=== PATIENT | female | born 1940 | race Caucasian/White ===

== ENCOUNTER → 2018-05-16 09:51 | Outpatient (REF) | payer OTHER, SELFPAY ==
[2018-05-16 18:44] LABS: Anion Gap 9.8 mmol/L (3-11); BUN 16 mg/dL (7-18); CO2 27.2 mmol/L (21.0-32.0); CREATININE 1.01 mg/dL (0.55-1.02); Calcium 8.7 mg/dL (8.5-10.1); Chloride 105 mmol/L (98-107); Estimated GFR 53.15 (mL/min/1.73m2); Glucose 90 mg/dL (70-100); Potassium 4.5 mmol/L (3.5-5.1); Sodium 142 mmol/L (136-145)
== END ==
LOC: NCHCN 09:51
PROVIDERS: PCP Internal Medicine; Visit Provider Nurse Practitioner Family
DX: N18.9 Chronic kidney disease, unspecified (principal)
CPT/HCPCS: 80048

== ENCOUNTER 2019-07-25 02:13 | Outpatient (RCR) | payer OTHER, SELFPAY ==
[2019-07-25] MEDS: Normal Saline Flush 10 ML SYR IVP (07:50)
[2019-07-25 08:08] LABS: Absolute Basophil Count 0.04 k/cumm (0.0-0.2); Absolute Lymphocyte Count 1.48 k/cumm (1.2-3.4); Absolute Monocyte Count 0.52 k/cumm (0.11-0.7); Absolute Neutrophil Count 2.95 k/cumm (1.2-6.7); Basophils % 0.8; Eosinophils % 3.9; HCT 35.3 % (36.0-46.0); HGB 11.4 g/dL (12.0-15.5); Lymphocytes % 28.5; Mean Corp. HGB Concentration 32.3 g/dL (32.0-36.0); Mean Corpuscular Hemoglobin 30.2 pg (27.0-33.0); Mean Corpuscular Volume 93.4 fL (80-95); Mean Platelet Volume 9.2 fL (8.0-11.0); Neutrophils % 56.8; Platelet Count 264 x1000/uL (130-400); RBC 3.78 m/cumm (4.00-5.20); RBC Distribution Width 13.9 % (11.7-14.6); White Blood Cell Count 5.19 k/cumm (4.4-10.8)
[2019-07-25 08:20] LABS: ALT 26 U/L (14-59); AST 16 U/L (15-37); Albumin 3.2 g/dL (3.4-5.0); Alkaline Phosphatase 58 U/L (46-116); Anion Gap 7.6 mmol/L (3-11); BUN 20 mg/dL (7-18); Bilirubin, Total 0.3 mg/dL (0.2-1.0); CO2 27.4 mmol/L (21.0-32.0); CREATININE 0.93 mg/dL (0.55-1.02); Calcium 8.4 mg/dL (8.5-10.1); Chloride 108 mmol/L (98-107); Estimated GFR 58.31 (mL/min/1.73m2); Glucose 77 mg/dL (70-100); Potassium 3.9 mmol/L (3.5-5.1); Sodium 143 mmol/L (136-145)
== END 2019-08-14 23:59 | disposition home or self-care (01) ==
LOC: INF 02:13
PROVIDERS: PCP Internal Medicine; Visit Provider Internal Medicine Hematology & Oncology
DX: C18.7 Malignant neoplasm of sigmoid colon (principal); Z45.2 Encounter for adjustment and management of vascular access device
CPT/HCPCS: 36591; 80053; 85025

== ENCOUNTER 2019-08-29 02:24 | Outpatient (RCR) | payer OTHER, SELFPAY ==
[2019-08-15] MEDS: Normal Saline Flush 10 ML SYR IVP (09:56)
[2019-08-15 10:24] LABS: Absolute Basophil Count 0.02 k/cumm (0.0-0.2); Absolute Eosinophil Count 0.09 k/cumm (0.0-0.7); Absolute Lymphocyte Count 1.28 k/cumm (1.2-3.4); Absolute Monocyte Count 0.48 k/cumm (0.11-0.7); Absolute Neutrophil Count 0.97 k/cumm (1.2-6.7); Basophils % 0.7; Eosinophils % 3.2; HCT 35.4 % (36.0-46.0); HGB 11.6 g/dL (12.0-15.5); Lymphocytes % 45.1; Mean Corp. HGB Concentration 32.8 g/dL (32.0-36.0); Mean Corpuscular Hemoglobin 30.8 pg (27.0-33.0); Mean Corpuscular Volume 93.9 fL (80-95); Mean Platelet Volume 9.1 fL (8.0-11.0); Monocytes % 16.9; Neutrophils % 34.1; Platelet Count 234 x1000/uL (130-400); RBC 3.77 m/cumm (4.00-5.20); RBC Distribution Width 14.5 % (11.7-14.6); White Blood Cell Count 2.84 k/cumm (4.4-10.8)
[2019-08-15 10:30] LABS: ALT 37 U/L (14-59); AST 27 U/L (15-37); Albumin 3.5 g/dL (3.4-5.0); Alkaline Phosphatase 54 U/L (46-116); Anion Gap 8.7 mmol/L (3-11); BUN 20 mg/dL (7-18); Bilirubin, Total 0.3 mg/dL (0.2-1.0); CO2 27.3 mmol/L (21.0-32.0); CREATININE 0.93 mg/dL (0.55-1.02); Calcium 9.1 mg/dL (8.5-10.1); Chloride 107 mmol/L (98-107); Estimated GFR 58.31 (mL/min/1.73m2); Glucose 85 mg/dL (70-100); Potassium 4.3 mmol/L (3.5-5.1); Sodium 143 mmol/L (136-145); Total Protein 6.9 g/dL (6.4-8.2)
[2019-08-15 10:49] LABS: Diff Comment Diff Reviewed; RBC Morphology Normal
[2019-08-22] MEDS: Normal Saline Flush 10 ML SYR IVP (10:29)
[2019-08-22 10:32] LABS: Absolute Basophil Count 0.04 k/cumm (0.0-0.2); Absolute Eosinophil Count 0.08 k/cumm (0.0-0.7); Absolute Lymphocyte Count 1.51 k/cumm (1.2-3.4); Absolute Neutrophil Count 1.25 k/cumm (1.2-6.7); Basophils % 1.2; Eosinophils % 2.4; HCT 36.7 % (36.0-46.0); Lymphocytes % 44.7; Mean Corp. HGB Concentration 32.7 g/dL (32.0-36.0); Mean Corpuscular Hemoglobin 30.7 pg (27.0-33.0); Mean Corpuscular Volume 93.9 fL (80-95); Mean Platelet Volume 9.3 fL (8.0-11.0); Monocytes % 14.8; Neutrophils % 36.9; Platelet Count 188 x1000/uL (130-400); RBC 3.91 m/cumm (4.00-5.20); RBC Distribution Width 14.9 % (11.7-14.6); White Blood Cell Count 3.38 k/cumm (4.4-10.8)
[2019-08-22 11:16] LABS: ALT 45 U/L (14-59); AST 35 U/L (15-37); Albumin 3.6 g/dL (3.4-5.0); Alkaline Phosphatase 58 U/L (46-116); Anion Gap 8.7 mmol/L (3-11); BUN 19 mg/dL (7-18); Bilirubin, Total 0.3 mg/dL (0.2-1.0); CO2 27.3 mmol/L (21.0-32.0); CREATININE 0.89 mg/dL (0.55-1.02); Calcium 9.2 mg/dL (8.5-10.1); Chloride 106 mmol/L (98-107); Glucose 81 mg/dL (70-100); Potassium 4.1 mmol/L (3.5-5.1); Sodium 142 mmol/L (136-145); Total Protein 7.1 g/dL (6.4-8.2)
[2019-08-29] MEDS: Normal Saline Flush 10 ML SYR IVP (09:27)
[2019-08-29 09:34] LABS: Absolute Basophil Count 0.03 k/cumm (0.0-0.2); Absolute Lymphocyte Count 1.42 k/cumm (1.2-3.4); Absolute Monocyte Count 0.41 k/cumm (0.11-0.7); Absolute Neutrophil Count 1.49 k/cumm (1.2-6.7); Basophils % 0.9; Eosinophils % 2.9; HCT 37.1 % (36.0-46.0); Lymphocytes % 41.2; Mean Corp. HGB Concentration 32.3 g/dL (32.0-36.0); Mean Corpuscular Hemoglobin 30.6 pg (27.0-33.0); Mean Corpuscular Volume 94.6 fL (80-95); Mean Platelet Volume 9.5 fL (8.0-11.0); Monocytes % 11.9; Neutrophils % 43.1; Platelet Count 200 x1000/uL (130-400); RBC 3.92 m/cumm (4.00-5.20); RBC Distribution Width 15.1 % (11.7-14.6); White Blood Cell Count 3.45 k/cumm (4.4-10.8)
[2019-08-29 10:02] LABS: ALT 41 U/L (14-59); AST 24 U/L (15-37); Albumin 3.4 g/dL (3.4-5.0); Alkaline Phosphatase 57 U/L (46-116); Anion Gap 7.4 mmol/L (3-11); BUN 21 mg/dL (7-18); Bilirubin, Total 0.3 mg/dL (0.2-1.0); CO2 26.6 mmol/L (21.0-32.0); CREATININE 0.91 mg/dL (0.55-1.02); Chloride 108 mmol/L (98-107); Estimated GFR 59.79 (mL/min/1.73m2); Glucose 64 mg/dL (70-100); Potassium 4.2 mmol/L (3.5-5.1); Sodium 142 mmol/L (136-145)
== END 2019-09-13 23:59 | disposition home or self-care (01) ==
LOC: INF 02:24
PROVIDERS: PCP Internal Medicine; Visit Provider Internal Medicine Hematology & Oncology
DX: C18.7 Malignant neoplasm of sigmoid colon (principal); Z45.2 Encounter for adjustment and management of vascular access device
CPT/HCPCS: 36591; 80053; 85025

== ENCOUNTER 2019-10-03 03:50 | Outpatient (RCR) | payer OTHER, SELFPAY ==
[2019-09-19] MEDS: Normal Saline Flush 10 ML SYR IVP (07:07)
[2019-09-19 07:15] LABS: Absolute Basophil Count 0.01 k/cumm (0.0-0.2); Absolute Eosinophil Count 0.08 k/cumm (0.0-0.7); Absolute Lymphocyte Count 1.19 k/cumm (1.2-3.4); Absolute Monocyte Count 0.48 k/cumm (0.11-0.7); Basophils % 0.4; HCT 36.4 % (36.0-46.0); HGB 12.3 g/dL (12.0-15.5); Lymphocytes % 44.7; Mean Corp. HGB Concentration 33.8 g/dL (32.0-36.0); Mean Corpuscular Hemoglobin 31.8 pg (27.0-33.0); Mean Corpuscular Volume 94.1 fL (80-95); Neutrophils % 33.9; Platelet Count 228 x1000/uL (130-400); RBC 3.87 m/cumm (4.00-5.20); RBC Distribution Width 16.2 % (11.7-14.6); White Blood Cell Count 2.66 k/cumm (4.4-10.8)
[2019-09-19 07:29] LABS: Diff Comment Diff Reviewed
[2019-09-19 07:30] LABS: Poikilocytes 1+
[2019-09-19 07:31] LABS: ALT 31 U/L (14-59); AST 31 U/L (15-37); Albumin 3.5 g/dL (3.4-5.0); Alkaline Phosphatase 56 U/L (46-116); Anion Gap 5.9 mmol/L (3-11); BUN 16 mg/dL (7-18); Bilirubin, Total 0.5 mg/dL (0.2-1.0); CO2 28.1 mmol/L (21.0-32.0); CREATININE 0.85 mg/dL (0.55-1.02); Calcium 8.9 mg/dL (8.5-10.1); Chloride 109 mmol/L (98-107); Glucose 86 mg/dL (74-106); Potassium 4.1 mmol/L (3.5-5.1); Sodium 143 mmol/L (136-145); Total Protein 7.1 g/dL (6.4-8.2)
[2019-09-26] MEDS: Normal Saline Flush 10 ML SYR IVP (08:52)
[2019-09-26 09:07] LABS: Absolute Basophil Count 0.04 k/cumm (0.0-0.2); Absolute Eosinophil Count 0.06 k/cumm (0.0-0.7); Absolute Lymphocyte Count 1.36 k/cumm (1.2-3.4); Absolute Monocyte Count 0.45 k/cumm (0.11-0.7); Absolute Neutrophil Count 0.82 k/cumm (1.2-6.7); Basophils % 1.5; Eosinophils % 2.2; HCT 35.9 % (36.0-46.0); HGB 11.8 g/dL (12.0-15.5); Lymphocytes % 49.8; Mean Corp. HGB Concentration 32.9 g/dL (32.0-36.0); Mean Corpuscular Hemoglobin 31.5 pg (27.0-33.0); Mean Corpuscular Volume 95.7 fL (80-95); Mean Platelet Volume 10.1 fL (8.0-11.0); Monocytes % 16.5; Platelet Count 187 x1000/uL (130-400); RBC 3.75 m/cumm (4.00-5.20); RBC Distribution Width 16.5 % (11.7-14.6); White Blood Cell Count 2.73 k/cumm (4.4-10.8)
[2019-09-26 09:25] LABS: ALT 30 U/L (14-59); AST 25 U/L (15-37); Albumin 3.3 g/dL (3.4-5.0); Alkaline Phosphatase 62 U/L (46-116); Anion Gap 6.9 mmol/L (3-11); BUN 21 mg/dL (7-18); Bilirubin, Total 0.2 mg/dL (0.2-1.0); CO2 27.1 mmol/L (21.0-32.0); CREATININE 0.91 mg/dL (0.55-1.02); Calcium 8.7 mg/dL (8.5-10.1); Chloride 109 mmol/L (98-107); Estimated GFR 59.79 (mL/min/1.73m2); Glucose 62 mg/dL (74-106); Potassium 4.2 mmol/L (3.5-5.1); Sodium 143 mmol/L (136-145); Total Protein 6.7 g/dL (6.4-8.2)
[2019-09-26 09:28] LABS: Diff Comment Diff Reviewed
[2019-10-03] MEDS: Normal Saline Flush 10 ML SYR IVP (07:05)
[2019-10-03 07:24] LABS: Absolute Basophil Count 0.02 k/cumm (0.0-0.2); Absolute Eosinophil Count 0.06 k/cumm (0.0-0.7); Absolute Lymphocyte Count 1.28 k/cumm (1.2-3.4); Absolute Monocyte Count 0.41 k/cumm (0.11-0.7); Absolute Neutrophil Count 1.88 k/cumm (1.2-6.7); Basophils % 0.5; Eosinophils % 1.6; HCT 37.3 % (36.0-46.0); HGB 12.3 g/dL (12.0-15.5); Lymphocytes % 35.1; Mean Corpuscular Hemoglobin 31.5 pg (27.0-33.0); Mean Corpuscular Volume 95.4 fL (80-95); Mean Platelet Volume 9.7 fL (8.0-11.0); Monocytes % 11.2; Neutrophils % 51.6; Platelet Count 190 x1000/uL (130-400); RBC 3.91 m/cumm (4.00-5.20); White Blood Cell Count 3.65 k/cumm (4.4-10.8)
[2019-10-03 08:13] LABS: ALT 27 U/L (14-59); AST 25 U/L (15-37); Albumin 3.4 g/dL (3.4-5.0); Alkaline Phosphatase 53 U/L (46-116); Anion Gap 7.8 mmol/L (3-11); BUN 19 mg/dL (7-18); Bilirubin, Total 0.4 mg/dL (0.2-1.0); CO2 27.2 mmol/L (21.0-32.0); CREATININE 0.82 mg/dL (0.55-1.02); Calcium 9.1 mg/dL (8.5-10.1); Chloride 108 mmol/L (98-107); Glucose 89 mg/dL (74-106); Potassium 4.3 mmol/L (3.5-5.1); Sodium 143 mmol/L (136-145)
== END 2019-10-14 23:59 | disposition home or self-care (01) ==
LOC: INF 03:50
PROVIDERS: PCP Internal Medicine; Visit Provider Internal Medicine Hematology & Oncology
DX: C18.7 Malignant neoplasm of sigmoid colon (principal); Z45.2 Encounter for adjustment and management of vascular access device
CPT/HCPCS: 36591; 80053; 85025

== ENCOUNTER 2019-11-14 03:42 | Outpatient (RCR) | payer OTHER, SELFPAY ==
[2019-10-24] MEDS: Normal Saline Flush 10 ML SYR IVP (09:03)
[2019-10-24 09:11] LABS: Absolute Basophil Count 0.01 k/cumm (0.0-0.2); Absolute Eosinophil Count 0.07 k/cumm (0.0-0.7); Absolute Lymphocyte Count 1.33 k/cumm (1.2-3.4); Absolute Monocyte Count 0.41 k/cumm (0.11-0.7); Absolute Neutrophil Count 0.81 k/cumm (1.2-6.7); Basophils % 0.4; Eosinophils % 2.7; HCT 36.1 % (36.0-46.0); HGB 11.9 g/dL (12.0-15.5); Lymphocytes % 50.6; Mean Corpuscular Hemoglobin 32.2 pg (27.0-33.0); Mean Corpuscular Volume 97.6 fL (80-95); Mean Platelet Volume 9.3 fL (8.0-11.0); Monocytes % 15.6; Neutrophils % 30.7; Platelet Count 224 x1000/uL (130-400); RBC Distribution Width 17.2 % (11.7-14.6); White Blood Cell Count 2.63 k/cumm (4.4-10.8)
[2019-10-24 09:27] LABS: ALT 33 U/L (14-59); AST 28 U/L (15-37); Albumin 3.3 g/dL (3.4-5.0); Alkaline Phosphatase 60 U/L (46-116); Anion Gap 6.4 mmol/L (3-11); BUN 17 mg/dL (7-18); Bilirubin, Total 0.4 mg/dL (0.2-1.0); CO2 27.6 mmol/L (21.0-32.0); CREATININE 0.85 mg/dL (0.55-1.02); Calcium 8.9 mg/dL (8.5-10.1); Chloride 109 mmol/L (98-107); Glucose 69 mg/dL (74-106); Potassium 4.1 mmol/L (3.5-5.1); Sodium 143 mmol/L (136-145); Total Protein 6.8 g/dL (6.4-8.2)
[2019-10-24 09:44] LABS: Anisocytosis 2+; Diff Comment Diff Reviewed; Polychromasia Present
[2019-10-31 10:07] LABS: Absolute Basophil Count 0.03 k/cumm (0.0-0.2); Absolute Eosinophil Count 0.06 k/cumm (0.0-0.7); Absolute Lymphocyte Count 1.28 k/cumm (1.2-3.4); Absolute Monocyte Count 0.46 k/cumm (0.11-0.7); Absolute Neutrophil Count 1.31 k/cumm (1.2-6.7); Eosinophils % 1.9; HCT 35.4 % (36.0-46.0); HGB 11.8 g/dL (12.0-15.5); Lymphocytes % 40.8; Mean Corp. HGB Concentration 33.3 g/dL (32.0-36.0); Mean Corpuscular Hemoglobin 32.8 pg (27.0-33.0); Mean Corpuscular Volume 98.3 fL (80-95); Mean Platelet Volume 10.2 fL (8.0-11.0); Monocytes % 14.6; Neutrophils % 41.7; Platelet Count 166 x1000/uL (130-400); White Blood Cell Count 3.14 k/cumm (4.4-10.8)
[2019-10-31 10:19] LABS: ALT 32 U/L (14-59); AST 27 U/L (15-37); Albumin 3.2 g/dL (3.4-5.0); Alkaline Phosphatase 58 U/L (46-116); BUN 20 mg/dL (7-18); Bilirubin, Total 0.6 mg/dL (0.2-1.0); CREATININE 0.96 mg/dL (0.55-1.02); Calcium 9.1 mg/dL (8.5-10.1); Chloride 107 mmol/L (98-107); Estimated GFR 56.21 (mL/min/1.73m2); Glucose 91 mg/dL (74-106); Potassium 4.1 mmol/L (3.5-5.1); Sodium 143 mmol/L (136-145); Total Protein 6.5 g/dL (6.4-8.2)
[2019-10-31] MEDS: Normal Saline Flush 10 ML SYR IVP (10:37)
[2019-11-14] MEDS: Normal Saline Flush 10 ML SYR IVP (12:27)
[2019-11-14] MEDS: Heparin 500 UNITS/5 ML SYRINGE IV (12:28)
[2019-11-14 12:32] LABS: Abs Immature Grans 0.01 k/cumm (0.0-0.09); Absolute Basophil Count 0.01 k/cumm (0.0-0.2); Absolute Eosinophil Count 0.05 k/cumm (0.0-0.7); Absolute Lymphocyte Count 1.34 k/cumm (1.2-3.4); Absolute Neutrophil Count 1.92 k/cumm (1.2-6.7); Basophils % 0.3; Eosinophils % 1.3; HCT 34.9 % (36.0-46.0); HGB 11.6 g/dL (12.0-15.5); Immature Grans % 0.3 %; Lymphocytes % 35.9; Mean Corp. HGB Concentration 33.2 g/dL (32.0-36.0); Mean Corpuscular Hemoglobin 32.9 pg (27.0-33.0); Mean Corpuscular Volume 98.9 fL (80-95); Mean Platelet Volume 9.7 fL (8.0-11.0); Monocytes % 10.7; Neutrophils % 51.5; Platelet Count 169 x1000/uL (130-400); RBC 3.53 m/cumm (4.00-5.20); RBC Distribution Width 16.6 % (11.7-14.6); White Blood Cell Count 3.73 k/cumm (4.4-10.8)
[2019-11-14 13:03] LABS: ALT 27 U/L (14-59); AST 32 U/L (15-37); Albumin 3.3 g/dL (3.4-5.0); Alkaline Phosphatase 56 U/L (46-116); BUN 16 mg/dL (7-18); Bilirubin, Total 0.5 mg/dL (0.2-1.0); Calcium 8.6 mg/dL (8.5-10.1); Chloride 108 mmol/L (98-107); Glucose 121 mg/dL (74-106); Potassium 3.7 mmol/L (3.5-5.1); Sodium 142 mmol/L (136-145); Total Protein 6.7 g/dL (6.4-8.2)
[2019-11-17 10:28] LABS: CEA 1.1 ng/mL (See Note)
== END 2019-11-14 23:59 | disposition home or self-care (01) ==
LOC: INF 03:42
PROVIDERS: PCP Internal Medicine; Visit Provider Internal Medicine Hematology & Oncology
DX: C18.7 Malignant neoplasm of sigmoid colon (principal); Z45.2 Encounter for adjustment and management of vascular access device
CPT/HCPCS: 36591; 80053; 82378; 85025

== ENCOUNTER 2019-12-19 04:33 | Outpatient (RCR) | payer OTHER, SELFPAY ==
[2019-12-19] MEDS: Normal Saline Flush 10 ML SYR IVP (10:21)
[2019-12-19] MEDS: Heparin 500 UNITS/5 ML SYRINGE IV (10:22)
[2019-12-19 10:30] LABS: Absolute Basophil Count 0.03 k/cumm (0.0-0.2); Absolute Eosinophil Count 0.08 k/cumm (0.0-0.7); Absolute Lymphocyte Count 1.49 k/cumm (1.2-3.4); Absolute Monocyte Count 0.39 k/cumm (0.11-0.7); Absolute Neutrophil Count 1.15 k/cumm (1.2-6.7); Eosinophils % 2.5; HCT 37.4 % (36.0-46.0); HGB 12.5 g/dL (12.0-15.5); Lymphocytes % 47.5; Mean Corp. HGB Concentration 33.4 g/dL (32.0-36.0); Mean Corpuscular Hemoglobin 33.2 pg (27.0-33.0); Mean Corpuscular Volume 99.5 fL (80-95); Mean Platelet Volume 9.9 fL (8.0-11.0); Monocytes % 12.4; Neutrophils % 36.6; Platelet Count 206 x1000/uL (130-400); RBC 3.76 m/cumm (4.00-5.20); RBC Distribution Width 13.9 % (11.7-14.6); White Blood Cell Count 3.14 k/cumm (4.4-10.8)
[2019-12-19 10:44] LABS: ALT 28 U/L (14-59); AST 24 U/L (15-37); Albumin 3.4 g/dL (3.4-5.0); Alkaline Phosphatase 58 U/L (46-116); Anion Gap 8.2 mmol/L (3-11); BUN 15 mg/dL (7-18); Bilirubin, Total 0.4 mg/dL (0.2-1.0); CO2 27.8 mmol/L (21.0-32.0); Calcium 8.7 mg/dL (8.5-10.1); Chloride 107 mmol/L (98-107); Glucose 75 mg/dL (74-106); Potassium 4.3 mmol/L (3.5-5.1); Sodium 143 mmol/L (136-145); Total Protein 6.9 g/dL (6.4-8.2)
== END 2020-01-13 23:59 | disposition home or self-care (01) ==
LOC: INF 04:33
PROVIDERS: PCP Internal Medicine; Visit Provider Internal Medicine Hematology & Oncology
DX: C18.7 Malignant neoplasm of sigmoid colon (principal); Z45.2 Encounter for adjustment and management of vascular access device
CPT/HCPCS: 36591; 80053; 85025

== ENCOUNTER 2024-09-22 18:26 | Outpatient (REF) | payer MEDICARE, SELFPAY | END 2024-09-22 18:27 | disposition home or self-care (01) | LOC: NCHCN 18:26 | PROVIDERS: PCP Internal Medicine; Visit Provider Internal Medicine | DX: R30.0 Dysuria (principal); B96.29 Other Escherichia coli [E. coli] as the cause of diseases classified elsewhere; R82.89 Other abnormal findings on cytological and histological examination of urine | CPT/HCPCS: 87077; 87086; 87186 ==